=== PATIENT | male | born 1990 | race Caucasian/White ===

== ENCOUNTER 2022-11-29 18:06 | Emergency (ER) | payer MEDICAID, SELFPAY ==
[2022-11-29 18:06] VITALS: BP 135/78; PULSE 114; RESP 16; TEMP 36.6; O2SAT 96; BMI 22.4
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
[2022-11-29 19:00] LABS: Absolute Lymphocyte Count 1.96 X10^3/uL (0.83-4.51); Absolute Neutrophil Count 5.4 X10^3/uL (2.0-7.7); Basophil# 0.04 X10^3/uL; Basophil% 0.5 % (0-1); Eosinophil# 0.05 X10^3/uL; Eosinophils% 0.6 % (0-5); Hemoglobin 15.7 g/dL (13.0-16.5); Lymphocyte # 1.96 X10^3/ul (0.83-4.51); Lymphocyte % 24.2 % (19-41); Mean Corp Hgb Conc 34.9 g/dL (32-36); Mean Corpuscular Hgb 31.8 pg (27.0-32.0); Mean Corpuscular Volume 91.3 fL (80-94); Mean Platelet Vol. 9.8 fl (6.2-12.0); Monocyte# 0.64 X10^3/uL; Monocyte% 7.9 % (0-10); NRBC Flagged by Analyzer 0 % (0-5); Neutrophil % 66.7 % (47-70); Platelet Count 242 K/mm3 (150-450); Red Blood Count 4.93 M/mm3 (4.6-6.2); White Blood Count 8.1 K/mm3 (4.4-11.0)
[2022-11-29 19:13] LABS: Anion Gap 7 (5-15); BUN 9 mg/dL (7-18); BUN/Creat Ratio 10.7 RATIO (10-20); Calcium,Total 9.1 mg/dL (8.5-10.1); Chloride 107 mmol/L (98-107); Creatinine, Serum 0.84 mg/dL (0.70-1.30); EST Glomerular Filtration Rate 113 mL/min (>60); Est Glom Filt Rate - Afr Amer 137 mL/min (>60); Estimated Creatinine Clearance 132.82 ml/min; Glucose 120 mg/dL (74-106); Potassium 3.3 mmol/L (3.5-5.1); Sodium Level 140 mmol/L (136-145)
[2022-11-29 19:41] LABS: Amphetamine Urine VISTA POSITIVE (<1000 ng/mL); Barbiturate Urine VISTA NEGATIVE (< 200 ng/mL); Benzodiazepine Urine VISTA NEGATIVE (< 200 ng/mL); Cocaine Urine VISTA NEGATIVE (< 300 ng/mL); Ecstacy Urine VISTA POSITIVE (< 500 ng/mL); Methadone Urine VISTA NEGATIVE (< 300 ng/mL); PCP Urine VISTA NEGATIVE (< 25 ng/mL); THC Urine VISTA NEGATIVE (< 50 ng/mL); Vista UDS pH Range 5
--- NOTE | 2022-11-29 23:32 | ED.RN ---
Pt has been increasingly agitated over the past hour, patient has requested to talk to the physician and crisis counselor regarding him having to go to the psych facility. Dr Puga comes to the bedside and answers all the patients questions and explains the pink slip procedure. Crisis calls and speaks to patient on the phone which only angers patient more. Pt requesting his belongings so he can leave, this RN explains at length that he could not have them due to the pink slip. Pt proceeds to run out of the department and down the ramp, this RN follows trying to talk patient back inside. Pt gets to the main entrance and stops and decided to walk back up the ramp and back inside. Pt pacing around room, still upset. Emotional support provided. Pt offered food and beverage but declines.
[2022-11-30 00:48] VITALS: BP 130/68; PULSE 97; RESP 18; O2SAT 97
[2022-11-30 02:31] VITALS: RESP 16
[2022-11-30 03:09] VITALS: RESP 16
[2022-11-30 05:09] VITALS: BP 108/55; PULSE 77; RESP 14; TEMP 36.3; O2SAT 97
[2022-11-30 06:03] VITALS: RESP 14
[2022-11-30 06:04] VITALS: BP 108/55; PULSE 77; RESP 14; TEMP 36.3; O2SAT 98
== END 2022-11-30 07:15 ==
PROVIDERS: Emergency Provider Emergency Medicine; Visit Provider Emergency Medicine
DX: R45.851 Suicidal ideations (principal); F17.210 Nicotine dependence, cigarettes, uncomplicated; R41.0 Disorientation, unspecified
CPT/HCPCS: 36415; 80048; 80307; 82077; 85025; 87811; 99284